=== PATIENT | female | born 1990 | race Caucasian/White ===

== ENCOUNTER 2016-12-26 11:20 | Emergency (ER) | payer OTHER ==
[~2016-12-26] VITALS: Ht 162.6 cm; Wt 83.9 kg
[~2016-12-26 11:20] MED LIST: ALBUTEROL0.09 MG/A1 INH; HYDROCODONE/ACE1 TA1 PO; IBUPROFEN800 M1 PO; IBUPROFEN800 MG PO; MEDROL DOSEPAK1 PAC PO; MOTRIN 600 MG600 MG PO; PERCOCET 5-3251 EACH PO; PRENATAL TABLE1 EAC2 PO; TYLENOL #31 TAB PO; VICODIN 300 MG-1 TAB PO; VICODIN 500 MG-1 TAB PO; VITAFOL-ONE1 SGL PO
[2016-12-26 11:59] LABS: ABSOLUTE BASOPHIL COUNT 0 /CUMM (0.0-0.2); ABSOLUTE EOSINOPHIL COUNT 0.3 /CUMM (0.0-0.7); ABSOLUTE GRANULOCYTE CT 3.8 /CUMM (1.4-6.5); ABSOLUTE LYMPH COUNT 1.7 /CUMM (1.2-3.4); ABSOLUTE MONOCYTE COUNT 0.4 /CUMM (0.10-0.60); BASOPHIL % 0.4 % (0.0-2.0); EOSINOPHIL % 4.5 % (0-5); HEMATOCRIT 39.2 % (37-47); MEAN CORPUSCULAR HGB 31.4 PG (27.0-31.0); MEAN CORPUSCULAR HGB CONC 34.2 G/DL (33.0-37.0); MEAN CORPUSCULAR VOLUME 91.8 FL (81.0-99.0); MEAN PLATELET VOLUME 8.9 FL (7.4-10.4); PLATELET COUNT 174 /CUMM (130-400); RBC DISTRIBUTION WIDTH 13.1 % (11.5-14.5); RED BLOOD CELL CT 4.27 /CUMM (4.20-5.40); WHITE BLOOD CELL COUNT 6.2 /CUMM (4.8-10.8)
[2016-12-26] MEDS ORDERED: ESCITALOPRAM OX10 MG PO (12:25)
[2016-12-26] MEDS ORDERED: ALPRAZOLAM0.25 M1 PO (12:25)
--- NOTE | 2016-12-26 12:56 | ED GENERAL ADULT ---
History of Present Illness General Chief Complaint: Female Urogenital Problems Stated Complaint: SENT BY HOME PARAPROFESSIONAL FOR VAGINAL BLEEDING Source: patient Exam Limitations: no limitations Vital Signs & Intake/Output Vital Signs & Intake/Output Vital Signs Date Time Temp Pulse Resp B/P B/P Pulse O2 O2 Flow FiO2 Mean Ox Delivery Rate 12/26 1338 59 18 123/81 96 Room Air 12/26 1134 99.0 85 16 136/92 97 Room Air Room Air Allergies Coded Allergies: No Known Allergies (12/26/16) Reconcile Medications Alprazolam 0.25 MG TABLET 1 TAB PO BIDP PRN ANXIETY (Reported) Escitalopram Oxalate 10 MG TABLET 1 TAB PO DAILY MENTAL HEALTH (Reported) Triage Note: PT TO TRIAGE WITH VAGINAL BLEEDING STARTING LAST NIGHT. PT DENIES PAIN, PT STATES SHE HAS HAD TO USE 5 HEAVY TAMPON SINCE THIS MORNING. PT STATES BLOOD IS BRIGHT RED WITH CLOTS. PT STATES SHE IS SLIGHTLY LIGHTHEADED. PT ALSO STATES THIS IS THE THIRD PERIOD SHE HAS HAD SINCE LATE NOVEMBER. Triage Nurses Notes Reviewed? yes : No Patient currently breastfeeds: No HPI: 26-year-old female with a history of ectopic and anemia in presenting with vaginal bleeding since last night. Reports heavy vaginal bleeding with multiple dime-sized clots. Has been changing her pad every 45 minutes and she woke up this morning. Denies abdominal pain or cramping. Denies dysuria, vaginal discharge, vaginal odor. Last normal menstrual period was November 29, but reports some breakthrough bleeding around December 06. (RISA ENAMORADO,CHE) Past History Travel History Traveled to [place] past 21 day No Medical History Any Pertinent Medical History? see below for history Neurological: NONE EENT: NONE Cardiovascular: NONE Respiratory: NONE Gastrointestinal: NONE Hepatic: NONE Renal: NONE Musculoskeletal: NONE Psychiatric: NONE Endocrine: NONE Blood Disorders: ANEMIA WHILE Cancer(s): NONE F[facility]ION STYLIST/Reproductive: ECTOPIC Surgical History Surgical History: Psychosocial History What is your primary language Dominican Tobacco Use: Current Daily Use Daily Tobacco Use Amount/Type: => 5 Cigarettes daily ETOH Use: occasional use Illicit Drug Use: denies illicit drug use Family History Hx Contributory? No (RISA ENAMORADO,CHE) Review of Systems Review of Systems Constitutional: Denies: chills, fever. Respiratory: Reports: no symptoms. Cardiovascular: Reports: no symptoms. GI: Denies: abdominal pain, diarrhea, nausea, vomiting. Genitourinary: Denies: discharge, dysuria, frequency, urgency. (RISA ENAMORADO,CHE) Physical Exam Physical Exam General Appearance: well developed/nourished, no apparent distress Head: atraumatic Respiratory: normal breath sounds, lungs clear Cardiovascular: regular rate/rhythm Gastrointestinal: normal bowel sounds, soft, non-tender Core Measures ACS in differential dx? No CVA/TIA Diagnosis: No Severe Sepsis Present: No Septic Shock Present: No (RISA ENAMORADO,CHE) Progress Differential Diagnoses I considered the following diagnoses in my evaluation of the patient: [ Menstruation versus ectopic versus spontaneous versus normal versus dysfunctional uterine bleeding] Plan of Care: Orders Procedure Date/time Status Add-on Test (ER Only) 12/26 1300 Active URINE 12/26 1255 Complete CULTURE,URINE 12/26 1254 Active URINALYSIS 12/26 1254 Complete TSH REFLEX 12/26 1140 Complete COMPREHENSIVE METABOLIC PANEL 12/26 1137 Complete CBC WITHOUT DIFFERENTIAL 12/26 1137 Complete Laboratory Tests 12/26/16 1339: Urine Test NEGATIVE 12/26/16 1339: Urinalysis LIGHT H, Urine Color YEL, Urine Clarity HAZY H, Urine pH 6.0, Ur Specific [place] 1.025, Urine Protein NEG, Urine Ketones NEG, Urine Nitrite NEG, Urine Bilirubin NEG, Urine Urobilinogen 0.2, Ur Leukocyte Esterase NEG, Ur Microscopic SEDIMENT EXAMINED, Urine RBC RARE, Urine WBC 1-3 H, Ur Epithelial Cells FEW, Urine Bacteria RARE H, Urine Mucus RARE, Urine Hemoglobin SMALL H, Urine Glucose NEG 12/26/16 1254: TSH &T3 &Free T4 Intrp Cancelled 12/26/16 1140: Anion Gap 10, Estimated GFR > 60, BUN/Creatinine Ratio 18.6, Glucose 86, Calcium 9.3, Total Bilirubin 0.6, AST 14, ALT 23, Alkaline Phosphatase 47, Total Protein 7.1, Albumin 4.3, Globulin 2.8, Albumin/Globulin Ratio 1.5, TSH &T3 &Free T4 Intrp 1.360, CBC w Diff NO MAN DIFF REQ, RBC 4.27, MCV 91.8, MCH 31.4 H, RDW 13.1, MPV 8.9, Gran % 61.0, Lymphocytes % 27.1, Monocytes % 7.0, Eosinophils % 4.5, Basophils % 0.4, Absolute Granulocytes 3.8, Absolute Lymphocytes 1.7, Absolute Monocytes 0.4, Absolute Eosinophils 0.3, Absolute Basophils 0, PUBS MCHC 34.2 Microbiology 12/26 1339 URINE ROUT: Urine Culture - RECD Urine negative. Patient has remained hemodynamically stable, normal H &H. Suspect that this is patient's menstruation as last normal menstrual period was approximately 4 weeks ago in cycles have always been regular. Suspect that bleeding on December 06 with just breakthrough bleeding. Instructed to follow-up with [facility] for reevaluation. (CHE LORD PA-C) Initial ED EKG: normal axis (CHE LORD PA-C) Departure Departure Disposition: HOME OR SELF CARE Condition: Stable Clinical Impression Primary Impression: Vaginal bleeding Referrals: SOLOMON CALDERÓN APRN (PCP/Family) Additional Instructions: Follow-up with your [facility] for further evaluation of your vaginal bleeding. Return to the ED for any new or worsening symptoms including not limited to severe abdominal pain, worsening bleeding, lightheadedness, dizziness, chest pain, shortness of breath. Departure Forms: Customer Survey General Discharge Information (CHE LORD PA-C) PA/BIT SHAVER Co-Sign Statement Statement: ED Attending supervision documentation- [] I saw and evaluated the patient. I have also reviewed all the pertinent lab results and diagnostic results. I agree with the findings and the plan of care as documented in the PA's/BIT SHAVER's documentation. [X] I have reviewed the ED Record and agree with the PA's/BIT SHAVER's documentation. [] Additions or exceptions (if any) to the PAs/BIT SHAVER's note and plan are summarized below: [] (NILAY MCKEON,RITA) Critical Care Note Critical Care Note Critical Care Time: non-applicable (CHE LORD PA-C)
[2016-12-26 13:38] VITALS: BP 123/81
== END 2016-12-26 14:23 ==
LOC: ERH 11:20
PROVIDERS: Emergency Medicine
DX: N93.9 Abnormal uterine and vaginal bleeding, unspecified (principal)
CPT/HCPCS: 81001; 81025; 87086